=== PATIENT | male | born 1955 | race Caucasian/White ===

== ENCOUNTER 2019-02-15 12:35 | Emergency (ER) | payer OTHER ==
[~2019-02-15] VITALS: Ht 177.8 cm; Wt 95.3 kg
--- NOTE | ~2019-02-15 | EMS ---
[address] [address] EMS Patient Care Report Name: ЕКАТЕРИНА VELASQUEZ Room #: 170-23 ADM IN M.R.#: [id number] Admission: 02/15/19 ������������������ Attend Phys: Lena Bennett Discharge: ������������������ Date of : 57 Report #: [id number] THIS REPORT FOR: //name// Report Transmitted: 02/16/2019 09:10 EMS Care Summary [place], [place]/[facility] Incident [id number] @ 02/15/2019 11:59 Incident Location [id number] [place] [address] Patient ЕКАТЕРИНА VELASQUEZ Male, 63 Years 1955 Patient Address [id number] [place] [address] Patient History None Reported, Patient Allergies No known allergies, Patient Medications None Reported, Chief Complaint LEG WEAKNESS, UNABLE TO CARE FOR SELF Disposition Transported No Lights/[place] Dispatch Reason Sick Person Transported To [facility] Narrative UPON ARRIVAL PT UPRIGHT ON COUCH CONSCIOUS AND ALERT. 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 PT HAS BEEN DEFICATING AND URINATING ON THE FLOOR AND THE COUCH AND HAS IT ON HIMSELF. THEY ALSO STATE PT HAS BEEN CALLING SON WHILE POSSIBLY HAVING [address] [address] EMS Patient Care Report Name: ЕКАТЕРИНА VELASQUEZ Room #: 170-23 ADM IN M.R.#: [id number] Admission: 02/15/19 ������������������ Attend Phys: Lena Bennett Discharge: ������������������ Date of : 57 Report #: [id number] HALLUCINATIONS. PT CALM AND COOPERATIVE. PT ONLY COMPLAINT IS HAVING TROUBLE GETTING AROUND. PT ASSISTED TO COT AND TRANSPORTED TO [facility]. Initial Vitals @12:18P: 98,R: 20,BP: 177/110,Pain: 0/10,GCS: 15,SpO2: 98,Revised Trauma: 12, @12:28P: 95,R: 16,BP: 165/99,Pain: 0/10,GCS: 15,SpO2: 98,Revised Trauma: 12, Assessments @12:10MENTAL:Person Oriented,Time Oriented,Event Oriented,Place Oriented,SKIN:HEENT:LUNG SOUNDS:ABDOMEN:PELVIS//GI:EXTREMITIES:Right Leg: Weakness,Left Leg: Weakness,Left Arm: No Abnormalities,Right Arm: No Abnormalities,PULSE:Radial: 2+ Normal,NEURO:No Abnormalities, Impression Generalized Weakness Procedures @12:10ALS AssessmentResponse: UnchangedSucceeded Timeline 11:58,Call Received 11:58,Dispatch Notified 11:59,Dispatched 12:00,En Route 12:07,On Scene 12:09,At Patient 12:10,ALS Assessment,Response: UnchangedSucceeded, 12:18,BP: 177/110 M,PULSE: 98,RR: 20 R,SPO2: 98 Ox,ETCO2: ,BG: ,PAIN: 0,GCS: 15, 12:24,Depart Scene 12:28,BP: 165/99 M,PULSE: 95,RR: 16 R,SPO2: 98 Ox,ETCO2: ,BG: ,PAIN: 0,GCS: 15, 12:32,At Destination 12:45,Call Closed Disclaimer v1.1 Copyright 2019 [employer] This EMS Care Summary contains data elements from the applicable legal record (which may be displayed differently). It is designed to provide pertinent information for the following purposes: continuity of care, clinical quality, and state data reporting. The complete legal record is available to ED staff and administrators of the receiving hospital in [employer]'s Patient Tracker. All data is provided "as is."
[2019-02-15 12:36] VITALS: BP 150/100
[2019-02-15 13:07] LABS: URINE BLOOD NEGATIVE (Negative); URINE CLARITY CLEAR; URINE GLUCOSE-RANDOM* NEGATIVE (Negative); URINE KETONES 1+ (Negative); URINE LEUKOCYTES-REFLEX NEGATIVE (Negative); URINE NITRITE-REFLEX NEGATIVE (Negative); URINE PROTEIN (DIPSTICK) 1+ (Negative); URINE SPECIFIC GRAVITY 1.015 (1.005-1.035); URINE UROBILINOGEN >= 8.0 E.U./dl (0.2-1.0)
[2019-02-15 13:11] LABS: ICTOTEST (BILI CONFIRMATORY) Negative (Negative); URINE BILIRUBIN NEGATIVE (Negative); URINE COLOR DARK YELLOW
[2019-02-15 13:12] LABS: AMP/METHAMP Negative (Negative); BARBITURATES Negative (Negative); BENZODIAZEPINES Negative (Negative); COCAINE Negative (Negative); METHADONE Negative (Negative); OPIATES Negative (Negative); PCP Negative (Negative)
[2019-02-15 13:28] LABS: HEMATOCRIT 46.1 % (42.0-52.0); HEMOGLOBIN 16.1 gm/dL (14.0-18.0); MCH 37.1 pg (26.0-34.0); MCHC 34.9 g/dL (28.0-37.0); MCV 106.5 fL (80.0-100.0); PLATELET COUNT 243 thou/uL (150-400); RBC 4.32 mil/uL (4.50-6.00); RDW 14.4 % (10.5-14.5); WBC 7.7 thou/uL (4.0-11.0)
[2019-02-15 13:31] LABS: CASTS None Seen /LPF (None Seen); SQUAMOUS 0-3 Few /LPF (0-3)
[2019-02-15 13:32] LABS: BACTERIA-REFLEX 1-9 Few /HPF (None Seen); CRYSTALS None Seen /LPF (None Seen); URINE RBC 0-2 Rare /HPF (0-2); URINE WBC-REFLEX None Seen /HPF (0-5)
[2019-02-15 13:48] LABS: ALBUMIN 2.8 g/dL (3.4-5.0); CALCIUM 9.1 mg/dL (8.5-10.1); CREATININE 0.6 mg/dL (0.7-1.3); TOTAL BILIRUBIN 0.8 mg/dL (<0.1-1.0); TOTAL PROTEIN 6.8 g/dL (6.4-8.2)
[2019-02-15 13:49] LABS: POTASSIUM 2.3 mmol/L (3.5-5.1)
[2019-02-15 14:04] LABS: PLATELET ESTIMATE NORMAL
[2019-02-15 15:09] LABS: FOLIC ACID 9.2 ng/mL (8.6-58.9)
[2019-02-15 15:34] LABS: CHOLESTEROL 182 mg/dL (<200); HDL CHOLESTEROL 46 mg/dL (>40); LDL CHOLESTEROL 121 mg/dL (<100); TRIGLYCERIDE 79 mg/dL (<150); VLDL 16 mg/dL (<40)
[2019-02-15 15:35] LABS: SERUM ASSESSMENT Clear
[2019-02-15 16:06] LABS: PHOSPHORUS 2.9 mg/dL (2.6-4.7)
[2019-02-15 22:51] VITALS: BP 123/81
[2019-02-16 06:38] LABS: CALCIUM 8.6 mg/dL (8.5-10.1); CREATININE 0.6 mg/dL (0.7-1.3); MAGNESIUM 1.6 mg/dL (1.8-2.4)
[2019-02-16 07:45] VITALS: BP 129/83
--- NOTE | 2019-02-16 08:04 | EKG ---
[address] [place] [address] ELECTROCARDIOGRAM REPORT Name: ЕКАТЕРИНА VELASQUEZ Room #: 170-23 ADM IN M.R.#: [id number] ������������������ Admission: 02/15/19 ������������������ Attend Phys: Lena Bennett Discharge: ������������������ Date of : 57 Report #: [id number] ����������������������������������������������������������������� [id number] THIS REPORT FOR: //name// [facility] ED Test Date: 2019-02-15 Test Time: 13:01:51 Pat Name: ЕКАТЕРИНА VELASQUEZ Department: Room: 170 Gender: M Continuity Coordinator: JOSE ALFREDO : 1955 Requested By: Jamel Steinberg Order Number: [id number] MD: Aime Gu Measurements Intervals [place] Rate: 84 P: 55 LA: 132 QRS: 85 QRSD: 122 T: 255 QT: 383 QTc: 453 Interpretive Statements Sinus rhythm Atrial premature complex Nonspecific intraventricular conduction delay Nonspecific ST and T wave abnormality No previous ECG available for comparison Electronically Signed On 02-16-2019 8:04:15 CDT by Aime Gu [email or web address] ��������������������������������������������� <ELECTRONICALLY SIGNED> ���������������������������������������� By: Aime Gu MD, [facility] ��������������������������������������������� 02/16/19 0804 1301 130 Aime Gu MD, FACC /EPI
--- NOTE | 2019-02-16 09:53 | 2DMMODE ---
[facility] [place] [place] [address] 2 D/M-MODE ECHOCARDIOGRAM Name: ЕКАТЕРИНА VELASQUEZ Room #: 170-23 ADM IN M.R.#: [id number] ������������� Admission: 02/15/19 ������������� Attend Phys: Lena Norman Discharge: ��� ������������� ��� Date of : 57 Date of Service: 02/16/19 0952 �� Report #: [id number] �������� ��������������������������������������������[id number] THIS REPORT FOR: //name// APPROVED REPORT Study performed: 02/16/2019 09:10:53 EXAM: Comprehensive 2D, Doppler, and color-flow Echocardiogram Patient Location: ER Status: routine BSA: 2.13 HR: 78 bpm BP: 129/83 mmHg Rhythm: NSR/arrhythmia Other Information Study Quality: Good Indications ST depression. Hx: ETOH/Tob abuse, HTN. 2D Dimensions RVDd: 32.05 mm IVSd: 12.20 (7-11mm) LVOT Diam: 19.52 (18-24mm) LVDd: 47.48 mm PWd: 9.89 (7-11mm) LVDs: 34.26 (25-40mm) Aortic Root: 34.59 mm Volumes Left Atrial Volume (Systole) Single Plane 4CH: 54.93 mL Single Plane 2CH: 81.68 mL LA ESV Index: 35.00 mL/m2 Aortic Valve AoV Peak Earl.: 1.22 m/s AO Peak Gr.: 5.96 mmHg LVOT Max P.71 mmHg LVOT Max V: 0.82 m/s KAYLEE Vmax: 2.01 cm2 Mitral Valve E/A Ratio: 1.1 MV Decel. Time: 187.66 ms MV E Max Earl.: 0.74 m/s [facility] [address] [place] [address] 2 D/M-MODE ECHOCARDIOGRAM Name: ЕКАТЕРИНА VELASQUEZ Room #: [facility] ADM IN [facility].#: [id number] ������������� Admission: 02/15/19 ������������� Attend Phys: Lena Norman Discharge: ��� ������������� ��� Date of : 57 Date of Service: 02/16/19 0952 �� Report #: [id number] �������� ��������������������������������������������[id number] MV A Earl.: 0.65 m/s MV PHT: 54.42 ms IVRT: 96.89 ms Pulmonary Valve PV Peak Earl.: 0.88 m/s PV Peak Gr.: 3.13 mmHg Pulmonary Vein P Vein S: 0.66 m/s P Vein A: 0.28 m/s P Vein D: 0.53 m/s P Vein A Dur.: 120.0 msec P Vein S/D Ratio: 1.25 Tricuspid Valve TR Peak Earl.: 2.08 m/s RAP Estimate: 5.00 mmHg TR Peak Gr.: 17.28 mmHg PA Pressure: 22.00 mmHg Left Ventricle The left ventricle is normal size. Regional wall motion abnormalities are noted. Mild basal septal hypertrophy is present. Left ventricular systolic function is borderline. LVEF is 50%. Moderate diastolic dysfunction is present (pseudonormal filling). Right Ventricle The right ventricle is normal size. The right ventricular systolic function is normal. Atria Left atrium is mildly dilated. The right atrium size is normal. Aortic Valve The aortic valve is normal in structure. No aortic regurgitation is present. There is no aortic valvular stenosis. Mitral Valve The mitral valve is normal in structure. Mild to moderate mitral regurgitation. Tricuspid Valve The tricuspid valve is normal in structure. Trace to mild tricuspid regurgitation. Estimated PAP is 20-25mmHg. Pulmonic Valve The pulmonary valve is normal in structure. Trace pulmonic regurgitation. [facility] [address] [place] [address] 2 D/M-MODE ECHOCARDIOGRAM Name: ЕКАТЕРИНА VELASQUEZ Room #: 170-23 ADM IN M.R.#: [id number] ������������� Admission: 02/15/19 ������������� Attend Phys: Lena Norman Discharge: ��� ������������� ��� Date of : 57 Date of Service: 02/16/19 0952 �� Report #: [id number] �������� ��������������������������������������������[id number] Great Vessels The aortic root is normal in size. Ascending aorta is not well visualized. IVC is normal in size and collapses >50% with inspiration. Pericardium There is no pericardial effusion. <Conclusion> The left ventricle is normal size. Left ventricular systolic function is borderline. LVEF is 50%. Moderate diastolic dysfunction is present (pseudonormal filling). The right ventricle is normal size. Left atrium is mildly dilated. The aortic valve is normal in structure. Mild to moderate mitral regurgitation. Trace to mild tricuspid regurgitation. Estimated PAP is 20-25mmHg. ��������������������������������������������� <ELECTRONICALLY SIGNED> ���������������������������������������� By: Nolan Rosario MD ��������������������������������������������� 02/16/19951 1 1 Nolan Rosario MD /INF
[2019-02-16] MEDS ORDERED: CARVEDILOL12.5 MG PO (10:24)
[2019-02-16] MEDS ORDERED: VITAMIN B-1100 M2 PO (10:25)
[2019-02-16] MEDS ORDERED: PRENATAL PO (10:25)
[2019-02-16 11:10] VITALS: BP 129/83
--- NOTE | 2019-02-16 11:15 | NUR ---
ASSUMED CARE OF PT AT APPROX 0700. PT IS ALERT AND ORIENTED X4, MONITORED ON TELE AND ABLE TO MAINTAIN 02 SAT >90 ON RA. DENIES PAIN AND SOA. EVEN NON LABORED BREATHING. ASSESSMENT CHARTED. PT IS IN THE ER CURRENTLY WAITING FOR BED INPATIENT. COMPLETED ADMISSION TO THE BEST OF MY ABILITY HERE IN ER. PT DENIES ANY NEW CONCERNS. NAD NOTED. WILL COTNINUE TO MONITOR.
--- NOTE | 2019-02-16 12:16 | NUR ---
RECIEVED ORDER FOR DC BACK TO HOME. COMPLETED DC. ADVISED PT. PT IS WAITING FOR SON TO CALL BACK TO BE ABLE TO GET RIDE SITUATION WORKED OUT. WILL CONT. TO MONITOR.
[2019-02-16 19:36] VITALS: BP 120/79
--- NOTE | 2019-02-17 08:36 | NUR ---
RECEIVED OT EVALUATION ORDER. PATIENT REMAINED IN THE ER AND WAS NEVER ADMITTED. PATIENT DISCHARGED PRIOR TO OT BEING INITIATED.
== END 2019-02-16 19:40 | disposition home or self-care (01) ==
LOC: ER 12:35 → EROBS 14:55 → ER 02-16 19:40
PROVIDERS: Emergency Medicine; Hospitalist; Nurse Practitioner Family
DX: R27.0 Ataxia, unspecified (principal); E87.8 Other disorders of electrolyte and fluid balance, not elsewhere classified; F17.210 Nicotine dependence, cigarettes, uncomplicated; F10.20 Alcohol dependence, uncomplicated; Y90.0 Blood alcohol level of less than 20 mg/100 ml